=== PATIENT | female | born 1950 | race Two or more races ===

== ENCOUNTER 2019-02-01 18:21 | Emergency (ER) | payer OTHER ==
[~2019-02-01] VITALS: Ht 175.3 cm; Wt 74.8 kg
[~2019-02-01 18:21] MED LIST: ARMOUR THYROID60 MG PO; KLONOPIN0.5 MG/TAB PO
[2019-02-01] MEDS ORDERED: SINGULAIR5 MG (18:55)
[2019-02-01] MEDS ORDERED: CORTISONE60 GM (18:55)
== END 2019-02-01 19:38 | disposition home or self-care (01) ==
LOC: ER 18:21
DX: L08.9 Local infection of the skin and subcutaneous tissue, unspecified (principal); S81.812S Laceration without foreign body, left lower leg, sequela; W26.0XXS Contact with knife, sequela

== ENCOUNTER 2020-09-05 15:23 | Emergency (ER) | payer OTHER ==
[~2020-09-05] VITALS: Ht 175.3 cm; Wt 62.6 kg
[~2020-09-05 15:23] MED LIST changes: +CORTISONE60 GM; +SINGULAIR5 MG
== END 2020-09-05 20:23 | disposition home or self-care (01) ==
LOC: ER 15:23
DX: M54.5 Low back pain (principal); M25.552 Pain in left hip

== ENCOUNTER → 2022-11-21 | Outpatient (CLI) | payer OTHER | END | disposition home or self-care (01) | LOC: NUCLEAR 08:00 → EDBD 08:46 | PROVIDERS: ATTEND Internal Medicine Hematology & Oncology | DX: C34.92 Malignant neoplasm of unspecified part of left bronchus or lung (principal) ==